=== PATIENT | male | born 1945 | race Caucasian/White ===

== ENCOUNTER 2022-04-12 15:56 | Emergency (ER) | payer MEDICARE ==
[~2022-04-12] VITALS: Ht 177.8 cm; Wt 52.2 kg
--- NOTE | 2022-04-12 16:30 | NUR ---
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 PT IS A&OX4, FATIGUED, LIKELY POSTICTAL
--- NOTE | 2022-04-12 16:35 | NUR ---
RN SPOKE TO VIA PHONE. SAID PT HAS 1-2 MIN TONIC CLONIC SZ, STATED PT VOIDED ON SELF. STATED THAT PT HAD OPEN HEART 5 YEARS AGO. STATED THAT PT HAS GASTROPARESIS. STATED THAT PT TAKES 400 MG DILANTIN, 40 MG PROTONIX, 25 MG TOPAMAX AND 25 MG LIPITOR. GAVE PHONE NUMBER [phone]
[2022-04-12] MEDS: IV NS 0.9% 1,000 ML BAG IV ONE (16:43)
[2022-04-12 17:21] LABS: BASOPHILS % (AUTO) 0.4 % (0.0-2.0); EOSINOPHILS % (AUTO) 0.2 % (0.0-6.0); HEMATOCRIT 42 % (39-51); HEMOGLOBIN 13.7 g/dL (13.5-17.5); LYMPHOCYTES # (AUTO) 0.9 K/uL (0.8-4.8); LYMPHOCYTES % (AUTO) 12.2 % (20.0-44.0); MEAN CORPUSCULAR HGB CONC 33 g/dl (31.0-36.0); MEAN CORPUSCULAR VOLUME 95 fL (80-96); MONOCYTES # (AUTO) 0.3 K/uL (0.1-1.30); MONOCYTES % (AUTO) 4.7 % (2.0-12.0); NEUTROPHILS # (AUTO) 5.9 K/uL (1.8-8.9); NEUTROPHILS % (AUTO) 82.5 % (43.0-81.0); PLATELET COUNT (AUTO) 271 K/uL (150-450); RED BLOOD CELL COUNT(AUTO) 4.37 MIL/uL (4.5-6.0); WHITE BLOOD COUNT (AUTO) 7.2 K/uL (4.3-11.0)
[2022-04-12 17:43] LABS: ALANINE AMINOTRANSFERASE 31 U/L (12-78); ALBUMIN 3.7 g/dL (3.4-5.0); ALCOHOL, BLOOD < 3 mg/dL (0-0); ALKALINE PHOSPHATASE 166 U/L (46-116); ASPARTATE AMINOTRANSFERASE 29 U/L (15-37); BILIRUBIN,DIRECT 0.2 mg/dL (0.0-0.2); BILIRUBIN,TOTAL 0.4 mg/dL (0.2-1.0); CARBON DIOXIDE 27 mmol/L (21-32); CHLORIDE 103 mmol/L (98-107); CREATININE 0.8 mg/dL (0.6-1.3); GLUCOSE 150 mg/dL (74-106); SODIUM SERUM 139 mmol/L (136-145); TOTAL PROTEIN, SERUM 7.9 g/dL (6.4-8.2); UREA NITROGEN, BLOOD 9 mg/dL (7-18)
[2022-04-12 17:50] LABS: PHENYTOIN (DILANTIN) 17.4 ug/ml (10.0-20.0)
--- NOTE | 2022-04-12 19:15 | NUR ---
REPORT GIVEN TO RELL SALAS. ALL QUESTIONS ANSWERED
--- NOTE | 2022-04-12 19:22 | NUR ---
TRANSPORT CALLED TO TAKE PATIENT HOME ETA 90-120 MINUTES.
--- NOTE | 2022-04-12 19:40 | NUR ---
RECEIVED REPORT FROM RELL UNDERWOOD. PATIENT IS ALREADY FOR DISCHARGE. AWAITING FOR TRANSPORTATION. COMPLAINING OF BODY PAIN. DR MENDOZA MADE AWARE. VITALS CHECKED.
[2022-04-12] MEDS ORDERED: ACETAMINOPHEN 325 MG TABLET ONE (19:45)
[2022-04-12] MEDS: ACETAMINOPHEN 325 MG TABLET PO ONE (19:48)
--- NOTE | 2022-04-12 19:48 | NUR ---
PATIENT OFFERED MEDICINE FOR PAIN PRESCRIBED BY . HE CLAIMED HE TOOK TYLENOL BEFORE HE CAME. I ASKED HIM MG/TAB OF TYLENOL HE TOOK. PT GOT UPSET AND THREW THE MEDICINE. CN AND AWARE.
--- NOTE | 2022-04-12 21:23 | NUR ---
REPORT GIVEN TO MARITZA OF [facility].
--- NOTE | 2022-04-12 21:32 | NUR ---
IV CANNULA REMOVED
--- NOTE | 2022-04-12 21:54 | NUR ---
Patient discharged to home in stable condition. Written and verbal after care instructions given. Patient verbalizes understanding of instruction.
[2022-04-12 21:55] VITALS: BP 142/83
== END 2022-04-12 21:56 ==
LOC: ER 15:59
DX: G40.909 Epilepsy, unspecified, not intractable, without status epilepticus (principal)
CPT/HCPCS: 99283; 96360; 85025; 80048; 80185; 83605 ×2; 80076; 36415; 82962; 80320; J7030; G0480